=== PATIENT | female | born 1990 | race Caucasian/White ===

== ENCOUNTER 2017-11-24 10:26 | Inpatient (IN) | payer OTHER ==
[~2017-11-24] VITALS: Ht 162.6 cm; Wt 87.3 kg
[~2017-11-24 10:26] MED LIST: IBU800 M1 PO; NO HOME MEDICATIONS; PERCOCET 325 MG1 TA2 PO; PRENATAL MVI PO
[2017-12-04 23:51] VITALS: BP 128/76; PULSE 84; TEMP 97.8
[2017-12-05] VITALS (44 sets, daily range): BP systolic 115–162; BP diastolic 58–90; PULSE 59–101; TEMP 97.1–98
[2017-12-05 01:51] LABS: BASO % 0.3 % (0.0-2.0); EOS # 0.1 (0.0-0.7); EOS % 1.6 % (0-4.0); GRAN # 5.7 (1.4-6.5); LYMPH # 2.1 (1.2-3.4); LYMPH % 22.9 % (20.0-51.0); MEAN CELL VOLUME 88 fl (80.0-100.0); MEAN CORPUSCULAR HGB CONC 33 g/dl (33.0-37.0); MEAN PLATELET VOLUME 10.3 fl (7.4-10.4); MONO % 10.8 % (1.7-9.3); PLATELET COUNT 239 K/mm3 (130-400); REDCELL DISTRIBUTION WIDTH-CV 13.5 % (11.5-14.5)
[2017-12-05 01:52] LABS: HEMATOCRIT 33.5 % (37.0-47.0); HEMOGLOBIN 11.1 g/dl (12.5-16.0); MEAN CORPUSCULAR HEMOGLOBIN 29 pg (27.0-31.0)
[2017-12-06 07:24] VITALS: BP 127/83; PULSE 56; TEMP 97.6
[2017-12-06 15:46] VITALS: BP 132/89; PULSE 89; TEMP 97.8
[2017-12-06 19:44] VITALS: BP 136/85; PULSE 77; TEMP 98.2
[2017-12-07 07:05] VITALS: BP 132/86; PULSE 59; TEMP 97.2
[2017-12-07] MEDS ORDERED: IBU800 M1 PO (09:35)
== END 2017-12-07 13:20 | disposition home or self-care (01) | DRG 775 ==
LOC: LDR 12-04 23:32 → OB 12-04 23:32 → LDR 12-05 10:25 → OB 12-05 16:50
PROVIDERS: Student in an Organized Health Care Education/Training Program
PROC: 10E0XZZ Delivery of Products of Conception, External Approach (ICD-10-PCS; principal; 2017-12-05)
PROC: 3E033VJ Introduction of Other Hormone into Peripheral Vein, Percutaneous Approach (ICD-10-PCS; 2017-12-05)
DX: O75.89 Other specified complications of labor and delivery (principal); O36.0130 Maternal care for anti-D [Rh] antibodies, third trimester, not applicable or unspecified; O99.824 Streptococcus B carrier state complicating childbirth; O69.82X0 Labor and delivery complicated by other cord entanglement, without compression, not applicable or unspecified; Z3A.39 39 weeks gestation of pregnancy; Z37.0 Single live birth
CPT/HCPCS: J2540; J2590; J2791; J2795; J7120